=== PATIENT | female | born 1950 ===

== ENCOUNTER 2023-10-14 06:01 | Day surgery (SDC) | payer OTHER, SELFPAY ==
--- NOTE | 2023-09-12 09:59 | CM ---
Patient is scheduled for an elective R Reverse TSA on 10/14/23- she is a same day patient. Spoke with patient prior to surgery. Introduced role of Orthopedic Navigator. Patient reports that she lives with her in a two story home. Currently
she functions independently. She has a rolling walker but doesn't use any DME. PCP is Geovanny Edgar.
Discussed orthopedic program and post surgical plans. Patient will return home when directed by surgeon. Reviewed MD follow up and transition to outpatient therapy. Patient is in agreement with tentative plan and states that her will be home
with her and can assist if needed.
Patient will complete online education.
Plan: Orthopedic Navigator will be involved in the care of patient after surgery and will reassess discharge needs at that time.
[2023-09-19 13:52] LABS: Hematocrit 39.9 % (37.0-47.0); Hemoglobin 13.2 g/dL (12.0-16.0); Mean Corp Hgb Conc. 33.1 g/dL (33.0-37.0); Mean Corpuscular Hgb 29.2 pg (27.0-31.0); Mean Corpuscular Volume 88.3 fL (81.0-99.0); Mean Platelet Volume 10.7 fL (7.4-10.4); Platelet Count 266 10^3/uL (130-400); Red Blood Cell Count 4.52 10^6/uL (4.20-5.40); Red Cell Dist. Width 14.1 % (11.5-14.5)
[2023-09-19 14:23] VITALS: BMI 27.8
[2023-09-19 14:28] LABS: ALT (SGPT) 22 U/L (0-35); AST (SGOT) 31 U/L (14-36); Albumin 4.2 g/dl (3.5-5.0); Alkaline Phosphatase 52 U/L (38-126); Blood Urea Nitrogen 36 mg/dl (7-17); Calcium 9.5 mg/dl (8.4-10.2); Carbon Dioxide 26 mmol/L (22-30); Chloride 104 mmol/L (98-107); Estimated Creatinine Clearance 45 ml/min; Glucose 80 mg/dl (70-99); Potassium 4.3 mmol/L (3.5-5.1); Sodium 137 mmol/L (135-145); Total Bilirubin 0.5 mg/dl (0.2-1.3); Total Protein 6.6 g/dl (6.3-8.2); eGFR > 60.00
[2023-09-20 08:57] LABS: Glycohemoglobin (HgbA1c) 5.9 % (4.0-5.6)
[2023-10-14] VITALS (9 sets, daily range): BP systolic 120–159; BP diastolic 53–87
[2023-10-14] MEDS: CELEBREX 200 MG PO (06:14)
[2023-10-14] MEDS: TYLENOL 1000 MG PO (06:14)
[2023-10-14] MEDS: NORMOSOL-R 1000 IV (06:40)
[2023-10-14] MEDS: ANCEF 5 IV (11:16)
== END 2023-10-14 11:36 | disposition home or self-care (01) ==
LOC: SDS 06:01
PROVIDERS: ATTENDING PHYSICIAN Specialist; FAMILY PHYSICIAN Family Medicine
DX: M19.011 Primary osteoarthritis, right shoulder (principal); M81.0 Age-related osteoporosis without current pathological fracture; M25.511 Pain in right shoulder
CPT/HCPCS: 23472; 36415; 73020; 80053; 83036; 85027; 87070; 93005; C1713; C1776